=== PATIENT | male | born 1970 | race Caucasian/White ===

== ENCOUNTER 2020-08-18 18:10 | Inpatient (IN) | payer MEDICAID, OTHER ==
[~2020-08-18] VITALS: Ht 170.2 cm; Wt 79.4 kg
[~2020-08-18 18:10] MED LIST: ACET-2128 PO; BUPR150T9 PO; OMEP20CA14 PO; QUET50TA PO; THIA50TA12 PO
[2020-08-18] MEDS ORDERED: ONDANSETRON HCL 4MG/2ML INJ IV STA (18:55)
[2020-08-18] MEDS ORDERED: MORPHINE SULFATE 4 MG/ML CPJ (NOT FOR IM USE) IV STA (18:55)
[2020-08-18] MEDS ORDERED: SODIUM CHLORIDE 0.9% 1,000 ML IV ONE (19:00)
[2020-08-18 19:24] LABS: BASOPHILS % 0.4 % (0.0-2.0); EOSINOPHILS % 0.4 % (0.0-5.0); HEMATOCRIT. 44.2 % (42.0-52.0); LYMPHOCYTES % 22.5 % (20.0-50.0); MEAN CORPUSCULAR HEMOGLOBIN 28.1 pg (28.0-32.0); MEAN CORPUSCULAR VOLUME 82.7 fL (80.0-94.0); MEAN PLATELET VOLUME 7.7 fl (7.4-10.4); MONOCYTES % 7.5 % (2.0-8.0); NEUTROPHILS % 69.2 % (40.0-76.0); PLATELET 328 x1000/uL (130-400); RED BLOOD CELL COUNT 5.34 mill/uL (4.7-6.1); RED CELL DISTRIBUTION WIDTH 17.5 % (11.6-14.6)
[2020-08-18 19:29] LABS: CHLORIDE 102 mEq/L (98-107); PROTHROMBIN TIME 10.6 sec (9.6-11.0)
[2020-08-19] MEDS: MORPHINE SULFATE 2 MG/ML CPJ (NOT FOR IM USE) IV PRN ×2 (00:39→04:38)
[2020-08-19 04:50] VITALS: BP 162/106
[2020-08-19] MEDS ORDERED: ONDANSETRON HCL 4MG/2ML INJ IV PRN (05:30)
[2020-08-19] MEDS ORDERED: MORPHINE SULFATE 2 MG/ML CPJ (NOT FOR IM USE) IV PRN (05:30)
[2020-08-19] MEDS ORDERED: ACETAMINOPHEN 500MG TABLET PO PRN (05:30)
[2020-08-19] MEDS ORDERED: POTASSIUM CHLORIDE 20MEQ TABLET SR PO SCH (08:15)
[2020-08-19 08:43] LABS: CHLORIDE 103 mEq/L (98-107)
[2020-08-19 08:46] LABS: AMYLASE 313 IU/L (25-115)
[2020-08-19 08:53] LABS: LDL CHOLESTEROL 82 mg/dL (5-100)
[2020-08-19 08:54] LABS: HDL CHOLESTEROL 72 mg/dL (40-59)
[2020-08-19] MEDS: BUPROPION HCL 150MG TABLET XL 24HR PO SCH (09:07)
[2020-08-19 09:15] VITALS: BP 139/93
[2020-08-19] MEDS: PANTOPRAZOLE SODIUM 40 MG/VIAL IV SCH (09:43)
[2020-08-19] MEDS: DEXT 5%/0.45% NACL KCL 20MEQ/L 1,000 ML IV SCH ×3 (11:43→23:44)
[2020-08-19 12:00] VITALS: BP 134/87
[2020-08-19 18:35] LABS: *AMPHETAMINES SCREEN URINE PRESUMTIVE POSITIVE (NEGATIVE); *BARBITURATES SCREEN URINE NEGATIVE (NEGATIVE); *BENZODIAZEPINES SCREEN URINE NEGATIVE (NEGATIVE); *COCAINE SCREEN URINE NEGATIVE (NEGATIVE)
[2020-08-19 18:36] LABS: CANNABINOID URINE SCREEN PRESUMTIVE POSITIVE (NEGATIVE); METHADONE URINE SCREEN NEGATIVE (NEGATIVE); OPIATES URINE SCREEN PRESUMTIVE POSITIVE (NEGATIVE); PHENCYCLIDINE URINE SCREEN NEGATIVE (NEGATIVE)
[2020-08-19] MEDS: DOCUSATE SODIUM 100MG CAPSULE PO SCH (19:08)
[2020-08-19 20:00] VITALS: BP 144/97
[2020-08-19] MEDS ORDERED: QUETIAPINE FUMARATE 50MG TABLET PO SCH (21:00)
[2020-08-20] VITALS: BP 124/82
[2020-08-20] MEDS ORDERED: PHENYLEPHRINE/SHK LV/MO/PET RECTAL OINTMENT 57GM PR SCH
[2020-08-20 04:00] VITALS: BP 119/61
[2020-08-20 07:13] LABS: BASOPHILS % 0.5 % (0.0-2.0); EOSINOPHILS % 1.7 % (0.0-5.0); HEMATOCRIT. 41.9 % (42.0-52.0); HEMOGLOBIN. 13.9 g/dL (14.0-18.0); LYMPHOCYTES % 13.8 % (20.0-50.0); MEAN CORPUSCULAR HEMOGLOBIN 27.7 pg (28.0-32.0); MEAN CORPUSCULAR VOLUME 83.2 fL (80.0-94.0); MEAN PLATELET VOLUME 8.2 fl (7.4-10.4); MONOCYTES % 7.8 % (2.0-8.0); NEUTROPHILS % 76.2 % (40.0-76.0); PLATELET 280 x1000/uL (130-400); RED BLOOD CELL COUNT 5.03 mill/uL (4.7-6.1); RED CELL DISTRIBUTION WIDTH 17.8 % (11.6-14.6)
[2020-08-20 07:39] LABS: CHLORIDE 105 mEq/L (98-107)
[2020-08-20 08:00] VITALS: BP_SYST 131; BP_SYST 137; BP_DIAS 45; BP_DIAS 89
[2020-08-20] MEDS: BUPROPION HCL 150MG TABLET XL 24HR PO SCH (08:17)
[2020-08-20] MEDS: DOCUSATE SODIUM 100MG CAPSULE PO SCH (08:17)
[2020-08-20] MEDS: PANTOPRAZOLE SODIUM 40 MG/VIAL IV SCH (08:32)
[2020-08-20] MEDS: DEXT 5%/0.45% NACL KCL 20MEQ/L 1,000 ML IV SCH (08:32)
[2020-08-20] MEDS ORDERED: DOCU-150 PO (12:06)
[2020-08-20] MEDS ORDERED: THIA50TA12 PO (12:06)
[2020-08-20] MEDS ORDERED: PHEN57OI PR (12:06)
[2020-08-20 13:13] VITALS: BP 131/89
== END 2020-08-20 15:37 | disposition home or self-care (01) | DRG 253 ==
LOC: ER 18:16 → 6WST 23:21 → ENRESERV 08-19 03:32
PROVIDERS: ADMIT Internal Medicine; ATTEND Internal Medicine
DX: K62.5 Hemorrhage of anus and rectum (principal); K85.90 Acute pancreatitis without necrosis or infection, unspecified; E87.6 Hypokalemia; F10.10 Alcohol abuse, uncomplicated; F15.90 Other stimulant use, unspecified, uncomplicated; I16.0 Hypertensive urgency; K64.9 Unspecified hemorrhoids; Z60.2 Problems related to living alone; Z79.899 Other long term (current) drug therapy; Z71.41 Alcohol abuse counseling and surveillance of alcoholic; Z71.51 Drug abuse counseling and surveillance of drug abuser
CPT/HCPCS: 36415; 74176; 80048; 80053; 80061; 80305; 82150; 83605; 85025; 86850; 86900; 99285; C9113; J2270; J2405; J7030